=== PATIENT | male | born 1970 | race American Indian/Alaskan Native ===

== ENCOUNTER 2018-05-12 21:23 | Emergency (ER) | payer OTHER, BC ==
[2018-05-12 21:35] VITALS: RESP 18; O2SAT 96
--- NOTE | 2018-05-12 21:55 | C.PDOC ---
History Of Present Illness 47 y/o male presents to the ED complaining of left shoulder that began today. Patient states while at work he was using heavy machinery to lift an object, when he felt a pull in the shoulder. Now complaining of soreness near the left shoulder blade. Denies any direct trauma. Patient otherwise denies any numbness , tingling, or extremity weakness. Time Seen by Provider: 05/12/18 21:39 Chief Complaint (Nursing): Upper Extremity Problem/Injury History Per: Patient History/Exam Limitations: no limitations Onset/Duration Of Symptoms: Hrs Current Symptoms Are (Timing): Still Present Past Medical History Reviewed: Historical Data, Nursing Documentation, Vital Signs Vital Signs: Last Vital Signs Temp 98.5 F 05/12/18 22:35 Pulse 81 05/12/18 22:35 Resp 18 05/12/18 22:35 BP 147/90 05/12/18 22:35 Pulse Ox 96 05/12/18 22:35 - Medical History PMH: HTN Denies: Chronic Kidney Disease Other Surgeries: Left ankle surgery Family History: States: No Known Family Hx - Social History Hx Alcohol Use: Yes Hx Substance Use: No - Immunization History Hx Tetanus Toxoid Vaccination: No Hx Influenza Vaccination: No Hx Pneumococcal Vaccination: No Review Of Systems Except As Marked, All Systems Reviewed And Found Negative. Musculoskeletal: Positive for: Shoulder Pain Neurological: Negative for: Weakness, Numbness, Incoordination Physical Exam - Physical Exam Appears: Non-toxic, No Acute Distress Skin: Normal Color, Warm, Dry Head: Atraumatic, Normacephalic Eye(s): bilateral: Normal Inspection, PERRL Oral Mucosa: Moist Neck: Normal ROM Back: Normal Inspection Extremity: Normal ROM (with no limitation of left shoulder), Tenderness (to the left subscapular area), Capillary Refill (< 2 sec), No Deformity (left shoulder) , No Swelling, No Other (tenderness to left shoulder joint ) Extremity: Bilateral: Normal Color And Temperature Pulses: Left Radial: Normal, Right Radial: Normal Neurological/Psych: Oriented x3, Normal Speech, Normal Motor (strength 5/5 to all extremities), Normal Sensation Gait: Steady ED Course And Treatment O2 Sat by Pulse Oximetry: 96 (RA) Pulse Ox Interpretation: Normal - Other Rad Left shoulder X-Ray: Interpreted by Me, Viewed By Me Interpretation: No fracture or dislocation Progress Note: X-Ray of the left shoulder obtained. Patient given 800 mg PO Motrin. Pt placed in shoulder immobilizer by CP and advised PMD / Ortho f/u Reevaluation Time: 22:05 Reassessment Condition: Improved Disposition - Disposition Referrals: [facility] [Outside] Disposition: HOME/ ROUTINE Disposition Time: 22:31 Condition: STABLE Additional Instructions: Please follow up with PMD or orthopedist as needed for pain Apply ICE pack to area Take motrin for pain Sling for support Return to ER if worse Prescriptions: Ibuprofen [Motrin] 600 mg PO Q6H #20 tab Instructions: Shoulder Sprain (DC) Forms: Gen Discharge Inst Upper Sorbian, [employer] (French), Work Excuse - Clinical Impression Clinical Impression: Left shoulder strain - 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 - Scribe Statement The provider has reviewed the documentation as recorded by the Scribe (Juany Jenkins) All medical record entries made by the Scribe were at my direction and personally dictated by me. I have reviewed the chart and agree that the record accurately reflects my personal performance of the history, physical exam, medical decision making, and the department course for this patient. I have also personally directed, reviewed, and agree with the discharge instructions and disposition.
[2018-05-12 22:39] VITALS: BP 147/90; PULSE 81; TEMP 98.5
--- NOTE | 2018-05-13 09:00 | RAD ---
Date of service: 05/12/2018 PROCEDURE: Radiographs of the Left Shoulder HISTORY: pain , felt pull while hoisting heavy object COMPARISON: None FINDINGS: BONES: No fracture JOINTS: Glenohumeral and acromioclavicular minimal osteoarthritis. SOFT TISSUES: 3 x 1 mm sliver like calcification bordering tuberosities on the internally rotated view -calcific rotator cuff tendinopathy and/or calcific bursitis -consideration. OTHER FINDINGS: None. IMPRESSION: No fracture dislocation. Minimal arthrosis 3 x 1 mm sliver like calcification bordering tuberosities on the internally rotated view -calcific rotator cuff tendinopathy and/or calcific bursitis -consideration.
== END 2018-05-12 22:38 | disposition home or self-care (01) ==
LOC: C.ER 21:23
DX: S46.912A Strain of unspecified muscle, fascia and tendon at shoulder and upper arm level, left arm, initial encounter (principal); X50.9XXA Other and unspecified overexertion or strenuous movements or postures, initial encounter; Y92.89 Other specified places as the place of occurrence of the external cause; Y99.0 Civilian activity done for income or pay